=== PATIENT | female | born 1960 ===

== ENCOUNTER 2020-06-26 06:09 | Day surgery (SDC) | payer OTHER ==
[~2020-06-26 06:09] MED LIST: BENZTROPINE MESY2 MG; CLONAZEPAM0.5 MG; COZAAR100 MG; GLIMEPIRIDE4 MG; HYDROCHLOROTHIA25 MG; INSULIN SYRING1 EA29; QUETIAPINE FUM400 M1; RESTORIL30 M1
== END 2020-06-26 16:00 | disposition home or self-care (01) ==
LOC: CIR.AMB 06:09 → EDSTATUS 10:45 → RECOVERY 10:45 → CIR.AMB 16:00
PROVIDERS: ATTEND Colon & Rectal Surgery
DX: K60.1 Chronic anal fissure (principal); Z20.828 Contact with and (suspected) exposure to other viral communicable diseases